=== PATIENT | male | born 1990 | race Caucasian/White ===

== ENCOUNTER 2022-06-07 18:50 | Emergency (ER) | payer OTHER, SELFPAY ==
[2022-06-07 19:08] VITALS: BP 133/73; PULSE 91; RESP 18; TEMP 36.6; O2SAT 100; BMI 23.7
--- NOTE | 2022-06-07 19:59 | ED.WOUNDLAC ---
HPI - Wound/Laceration General Chief Complaint: Wound/Laceration Stated Complaint: laceration Time Seen by Provider: 06/07/22 19:02 Source: patient Mode of arrival: ambulatory Limitations: no limitations History of Present Illness HPI narrative: Patient presents with a laceration to his left 3rd digit. Happened prior to arrival at work. Laceration was with a knife cutting into rubber. His tetanus is reportedly up-to-date. Pain is mild to moderate. Worse with palpation. Pain does not radiate. There is no numbness or tingling. Related Data Previous Rx's Medication Instructions Recorded cefuroxime axetil 500 mg tablet 500 mg PO BID #10 tabs 06/07/22 Allergies Allergy/AdvReac Type Severity Reaction Status Date / Time No Known Allergies Allergy Verified 06/07/22 20:03 [facility] Social History Social History Advance Directives: No Advance Directives Information Provided: Yes Physical Exam Vital Signs: Vital Signs: Last Vital Signs Temp 97.9 F 06/07/22 19:08 Pulse 91 06/07/22 19:08 Resp 18 06/07/22 19:08 BP 133/73 06/07/22 19:08 Pulse Ox 100 06/07/22 19:08 O2 Del Method 06/07/22 19:08 BMI result Body Mass Index 23.7 GEN: Well developed, no acute distress, alert, oriented HEENT: Normocephalic, atraumatic, normal external ears, nose appears normal Eyes: Normal to appearance Neck: Supple, no lymphadenopathy Respiratory: Talks in complete sentences, no respiratory distress Extremities: No clubbing cyanosis or edema Neurologic: No focal neurologic deficits, cranial nerves 2-12 intact, gait normal Skin: No rash left 3rd digit volar aspect 3 cm linear laceration with active bleeding, no visible tendon or bone damage, able to flex extend against resistance, neurovascularly intact Course Course Course Narrative: 31-year-old male presents with laceration left 3rd digit. There is no evidence of tendon or bony issue. There is no deformity. Tetanus is up-to-date. This is a dirty wound patient will be started on antibiotics. Laceration was repaired without any complications. I discussed all discharge planning which included watching for signs of infection including redness, swelling, pain, purulent drainage. Sutures are absorbable however, should they persist, patient can come back and have them removed. Medical Decision Making Medical Decision Making MDM Narrative: Patient presents with laceration to the left 3rd digit. Laceration was repaired. Discharge instructions were discussed Differential Diagnosis Differential Diagnoses: The differential diagnosis associated with the presentation includes (Laceration, abrasion, contusion) Laceration of 3rd digit Prescription Management I considered prescription management with: Pain Medication Procedures Laceration Laceration 1: Site: hand Side (If applicable): left Size (cm): 3 Description: linear Depth: simple, single layer Local Anesthetic: lidocaine 1% Amount of anesthesia used (mL): 4 Pre-repair: wound explored, irrigated extensively and deep structures intact Skin layer closed with: vicryl Size (cm): 5-0 Number of sutures: 6 Technique: simple, interrupted Discharge Plan Discharge Clinical Impression: Laceration Patient Disposition: Home, Self-Care Instructions: Laceration (ED), Finger Laceration (ED) Prescriptions: New cefuroxime axetil 500 mg tablet 500 mg PO BID Qty: 10 0RF Referrals: [facility] [Provider Group]
[2022-06-07] MEDS: cephALEXin 500 MG CAPSULE PO (20:16)
== END 2022-06-07 20:30 | disposition home or self-care (01) ==
PROVIDERS: Emergency Provider Emergency Medicine
DX: S61.412A Laceration without foreign body of left hand, initial encounter (principal); W26.0XXA Contact with knife, initial encounter; Y93.9 Activity, unspecified; Y92.009 Unspecified place in unspecified non-institutional (private) residence as the place of occurrence of the external cause; Y99.9 Unspecified external cause status
CPT/HCPCS: 12042; 99282; 99283

== ENCOUNTER 2023-08-30 19:08 | Emergency (ER) | payer OTHER, SELFPAY ==
--- NOTE | ~2023-08-30 | XR_ITS ---
EXAMINATION: Left thumb CLINICAL INFORMATION: Laceration. COMPARISON: None available. TECHNIQUE: Frontal view of left hand. 2 cone-down views of the left thumb. FINDINGS: Bandage over the distal thumb. There is no radiopaque foreign body. Bone and joint are normal. XR/XR finger LT min 2V IMPRESSION: Bandage over the distal thumb. There is no radiopaque foreign body. No acute osseous abnormality.
[2023-08-30 19:14] VITALS: BP 138/82; PULSE 104; O2SAT 99
[2023-08-30 19:23] VITALS: BP 117/78; PULSE 92; RESP 17; TEMP 36.9; O2SAT 99; BMI 23.7
--- NOTE | 2023-08-30 19:28 | ED.UPPEXIN ---
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 His hand slipped and he accidentally cut part of his thumb He has a small laceration to the tip of the left thumb. He believes his tetanus is up-to-date Related Data Previous Rx's ?Medication ?Instructions ?Recorded cefuroxime axetil 500 mg tablet 500 mg PO BID #10 tabs 06/07/22 Allergies Allergy/AdvReac Type Severity Reaction Status Date / Time No Known Allergies Allergy Verified 08/30/23 19:25 Review of Systems Integumentary/Breasts: Skin/Breast: Reports wounds PMFSH Social History Social History Advance Directives: No Advance Directives Information Provided: No Do you have a plan to hurt others: No Plan Physical Exam Vital Signs: Vital Signs: Last Vital Signs Temp 97.3 F 08/30/23 21:28 Pulse 73 08/30/23 21:28 Resp 16 08/30/23 21:28 BP 123/88 08/30/23 21:28 Pulse Ox 98 08/30/23 21:28 O2 Del Method Room Air 08/30/23 21:28 BMI result Body Mass Index 23.7 Const: General: healthy appearing, comfortable, no acute distress, alert and awake Nutritional Appearance: well nourished Orientation/consciousness: patient oriented x3 HEENT: Head: Yes normocephalic and Yes atraumatic Eyes: Eyelids: Yes eyelids normal Conjunctivae: conjunctivae normal Sclerae: sclerae normal Corneas: corneas normal Pupils: Equal, round and reactive pupils present EOM: EOMs intact bilaterally Neck: Neck: Yes full ROM Resp: Effort & Inspection: normal respiratory effort, able to speak in complete sentences and not labored Skin: Other: Patient has a small, 1 cm partial-thickness laceration to the left Tuesday fingertip. Bleeding is controlled General skin exam: elasticity normal Neuro: General: patient oriented x3 Cranial nerves: Yes Equal, round and reactive pupils present and Yes Bilaterally intact EOM present Cognition (Neuro): normal cognition Course Course Course Narrative: This is a Rapid Medical Examination (RME) performed by Ann Sanders PA-C in triage. Full HPI, ROS, assessment and treatment plan per primary provider in the Main ED. 32 yo male here via EMS for eval of left thumb laceration sustained at work [employer]. 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 Bleeding controlled on arrival. Tetanus updated 1 year ago. 1.5cm lac noted to finger pad of left thumb. no obvious involvement of the nail bed. no subungal hematoma. bleeding controlled. Plan: xr ordered Medical Decision Making Medical Decision Making MDM Narrative: Patient has a small, superficial laceration. There is no evidence of tendon injury. X-ray shows no evidence of osseous injury or retained metallic foreign body. The wound is superficial, only 1 cm, bleeding is controlled, it will be closed with Exofin skin glue. Differential Diagnosis Differential Diagnoses: The differential diagnosis associated with the presentation includes Laceration Skin tear Puncture wound Abrasion Discharge Plan Discharge Clinical Impression: Laceration Patient Disposition: Home, Self-Care Instructions: Finger Laceration (ED) Additional Instructions: Your wound was cleaned and then closed with Exofin skin glue. Do not get wet for the next 24 hours, but then it will be water proof. The glue should dissolve on its own in about 1 week Follow-up with your primary doctor Prescriptions: No Action cefuroxime axetil 500 mg tablet 500 mg PO BID Qty: 10 0RF Print Language: Mohawk
[2023-08-30 21:28] VITALS: BP 123/88; PULSE 73; RESP 16; TEMP 36.3; O2SAT 98
[2023-08-30 23:51] VITALS: BP 123/88; PULSE 73; RESP 16; TEMP 36.3; O2SAT 98
[2023-08-30 23:52] VITALS: BP 124/82; PULSE 72; RESP 16; TEMP 37; O2SAT 98
== END 2023-08-30 23:55 | disposition home or self-care (01) ==
PROVIDERS: Emergency Provider Internal Medicine
DX: S61.012A Laceration without foreign body of left thumb without damage to nail, initial encounter (principal); W26.0XXA Contact with knife, initial encounter; Y93.9 Activity, unspecified; Y92.9 Unspecified place or not applicable; Y99.0 Civilian activity done for income or pay
CPT/HCPCS: 12001; 12011; 73140; 99283